=== PATIENT | male | born 1995 | race Caucasian/White ===

== ENCOUNTER 2023-08-03 16:29 | Emergency (ER) | payer OTHER, SELFPAY ==
[2023-08-03] VITALS (22 sets, daily range): BP systolic 126–168; BP diastolic 83–111; PULSE 69–131; RESP 10–30; TEMP 36.4–36.8; O2SAT 94–100; BMI 25.3
--- NOTE | 2023-08-03 16:43 | XR_ITS ---
PROCEDURE INFORMATION: Exam: XR Right Humerus Exam date and time: 08/03/2023 5:22 PM Age: 28 years old Clinical indication: Injury or trauma; Fall; Blunt trauma (contusions or hematomas); Elbow; Right; Additional info: Fall off of horse TECHNIQUE: Imaging protocol: Radiologic exam of the right humerus. Views: 2 or more views. COMPARISON: No relevant prior studies available. FINDINGS: Bones/joints: Normal. Soft tissues: Normal. IMPRESSION: No acute findings.
--- NOTE | 2023-08-03 16:43 | XR_ITS ---
PROCEDURE INFORMATION: Exam: XR Right Elbow Exam date and time: 08/03/2023 5:22 PM Age: 28 years old Clinical indication: Injury or trauma; Fall; Blunt trauma (contusions or hematomas); Patient HX: Patient fell off of horse, right elbow appears severely deformed. TECHNIQUE: Imaging protocol: Radiologic exam of the right elbow. Views: 1 or 2 views. COMPARISON: No relevant prior studies available. FINDINGS: Bones/joints: Posterior dislocation of the radius and ulna from the elbow joint. Punctate fracture fragments adjacent to the radial head. Soft tissues: Mild diffuse soft tissue swelling at the elbow. IMPRESSION: Posterior dislocation of the radius and ulna from the elbow joint with punctate fracture fragments adjacent to the radial head.
--- NOTE | 2023-08-03 16:43 | XR_ITS ---
PROCEDURE INFORMATION: Exam: XR Right Forearm Exam date and time: 08/03/2023 5:22 PM Age: 28 years old Clinical indication: Injury or trauma; Fall; Blunt trauma (contusions or hematomas); Patient HX: Patient fell off of horse, right elbow appears deformed. TECHNIQUE: Imaging protocol: Radiologic exam of the right forearm. Views: 2 views. COMPARISON: No relevant prior studies available. FINDINGS: Bones/joints: Posterior dislocation of the radius and ulna at the elbow joint. Small fracture fragments adjacent to the radial head. No other fracture. Soft tissues: Normal. IMPRESSION: Posterior dislocation of the radius and ulna at the elbow joint with small fracture fragments adjacent to the radial head.
--- NOTE | 2023-08-03 16:53 | [facility]H.EDGENADL ---
Discharge Plan Disposition Patient Disposition: Home, Self-Care Prescriptions Prescriptions: New hydrocodone-acetaminophen 5-325 mg tablet 1 tab PO Q6H PRN (Reason: pain) 3 Days Qty: 12 0RF Referrals Follow up/Referrals: Vinh Vasquez DO [Staff Physician] - See instructions (call for next appointment ) Provider,Referral, [Primary Care Provider] - See instructions Clinical Impressions Clinical Impression: Closed posterior dislocation of right elbow Instructions Patient Instructions: DI for Moderate Sedation Discharge ED Provider: Mahsa Jackson General Adult HPI General Chief complaint: Fall Stated complaint: AO08/03 fall RT arm inj Time Seen by Provider: 08/03/23 16:41 Mode of Arrival: Ambulatory Source of Information: Patient Limitations: No Limitations Description of Symptoms (Recalled from ER Triage Doc. by RN): 28 yo M presents to ED after fall off a josep. pt states that he was working with a josep and fell off. pain and disformatity to right arm. + PMS History of Present Illness HPI narrative: Patient is a 28-year-old male presents today with right upper extremity injury after being bucked off of occult. States that he landed directly onto his right arm is unsure exactly how he landed but believes he landed on outstretched arm had immediate pain in the right elbow area. Denies any significant pain elsewhere. Has normal range of motion from history standpoint and no significant loss of sensation loss. Did not hit his head no loss of consciousness no head neck chest abdomen pelvis or other injuries. Denies any past medical problems Related Data Previous Rx's Medication Instructions Recorded hydrocodone 5 mg-acetaminophen 325 1 tab PO Q6H PRN pain 3 days #12 08/03/23 mg tablet tabs Allergies Allergy/AdvReac Type Severity Reaction Status Date / Time No Known Allergies Allergy Verified 08/03/23 16:42 [facility] Disclaimer: The information contained in this section may have been updated after the patient was seen, as this information can be updated by other users. Social History Smoking Status: Current every day smoker alcohol intake: never current occupational status: other Travel in the last 8 weeks: None ROS Obtained: Yes All systems reviewed & no additional complaints except as documented Physical Exam General General appearance: alert Respiratory Respiratory exam: Present normal lung sounds bilaterally; Absent respiratory distress Cardiovascular Cardiovascular exam: Present regular rate; Absent tachycardia Extremities Exam Extremities exam: Present other (Tenderness and obvious deformity over the distal humerus area in the right elbow with swelling around this area as well. Median ulnar radial motor and sensory exam normal distal with normal distal pulses.) Neurological Exam Neurological exam: Present alert and oriented X3 Medical Decision Making Gerardo Inquiry Pt receiving controlled substance: No Vital Signs: 08/03/23 16:40 08/03/23 18:07 08/03/23 17:41 Temperature 97.5 F L 98.2 F Temperature Source Oral Oral Pulse Rate 69 Pulse Rate [Left] 85 101 H Respiratory Rate 16 16 15 Blood Pressure 127/94 H Blood Pressure [Right Arm] 126/83 161/96 H Blood Pressure Mean 102 Blood Pressure Mean [Right Arm] 97 117 02 Sat by Pulse Oximetry 97 99 99 08/03/23 18:00 08/03/23 18:06 08/03/23 18:22 Temperature Temperature Source Pulse Rate 81 83 131 H Pulse Rate [Left] Respiratory Rate 16 16 13 Blood Pressure 138/97 H 151/98 H 152/98 H Blood Pressure [Right Arm] Blood Pressure Mean 107 104 112 Blood Pressure Mean [Right Arm] 02 Sat by Pulse Oximetry 99 99 99 08/03/23 18:26 08/03/23 18:30 08/03/23 18:35 Temperature Temperature Source Pulse Rate 131 H 109 H 109 H Pulse Rate [Left] Respiratory Rate 13 14 13 Blood Pressure 165/101 H 168/111 H 164/107 H Blood Pressure [Right Arm] Blood Pressure Mean 120 123 116
--- NOTE | 2023-08-03 18:26 | XR_ITS ---
PROCEDURE INFORMATION: Exam: XR Right Elbow Exam date and time: 08/03/2023 6:43 PM Age: 28 years old Clinical indication: Pain; Elbow; Right; Additional info: Post reduction TECHNIQUE: Imaging protocol: Radiologic exam of the right elbow. Views: 1 or 2 views. COMPARISON: CR XR ELBOW RT 2V 08/03/2023 5:22 PM FINDINGS: Bones/joints: Successful reduction of the dislocation of the radius and ulna. No visible fracture. Large elbow joint effusion. Soft tissues: Normal. IMPRESSION: Successful reduction of the dislocation of the radius and ulna.
--- NOTE | 2023-08-03 18:35 | PC.NURSE ---
Michael at helping pt use a urinal
== END 2023-08-03 20:03 | disposition home or self-care (01) ==
PROVIDERS: Emergency Provider Student in an Organized Health Care Education/Training Program
DX: S53.124A Posterior dislocation of right ulnohumeral joint, initial encounter (principal); V80.010A Animal-rider injured by fall from or being thrown from horse in noncollision accident, initial encounter; F17.200 Nicotine dependence, unspecified, uncomplicated
CPT/HCPCS: 73060; 73070; 73090; 96374; 96375; 99152; 99153; 99285

== ENCOUNTER 2023-10-10 08:00 | Outpatient (RCR) | payer OTHER, SELFPAY | END 2023-10-10 09:10 | disposition home or self-care (01) | LOC: OT 08:00 | PROVIDERS: PCP Orthopaedic Surgery; Visit Provider Orthopaedic Surgery | DX: S53.104A Unspecified dislocation of right ulnohumeral joint, initial encounter (principal) | CPT/HCPCS: 97010; 97014; 97035; 97110; 97140; 97165; G0283 ==